=== PATIENT | male | born 1945 | race Caucasian/White ===

== ENCOUNTER → 2018-05-21 | Outpatient (CLI) | payer OTHER ==
[~2018-05-21] MED LIST: IOHEXOL 350 MG/ML 100ML INFUS..BTL IV ONE
== END | disposition home or self-care (01) ==
LOC: OIH 08:52
PROVIDERS: ATTEND Internal Medicine
DX: N28.89 Other specified disorders of kidney and ureter (principal); N28.1 Cyst of kidney, acquired
CPT/HCPCS: 74170; Q9967

== ENCOUNTER → 2024-05-08 | Outpatient (CLI) | payer OTHER ==
[2024-05-08 16:29] LABS: INR 1.91 (0.85-1.15); PROTHROMBIN TIME 20.1 SEC (9.6-11.6)
[2024-05-08 16:31] LABS: PARTIAL THROMBOPLASTIN TIME 34.5 SEC (26.3-35.5)
== END | disposition home or self-care (01) ==
LOC: LAB 11:19
PROVIDERS: ATTEND Student in an Organized Health Care Education/Training Program
DX: I48.91 Unspecified atrial fibrillation (principal)
CPT/HCPCS: 36415; 85610; 85730

== ENCOUNTER → 2025-04-23 | Outpatient (CLI) | payer OTHER ==
--- NOTE | 2025-04-23 13:38 | HMCIMG ---
EXAM: CT Abdomen without Intravenous Contrast CLINICAL HISTORY: Unspecified jaundice, Secondary and unspecified malignant neoplasm TECHNIQUE: Axial computed tomography images of the abdomen without intravenous contrast. Dose reduction technique was used including one or more of the following: automated exposure control, adjustment of mA and kV according to patient size, and/or iterative reconstruction. CONTRAST: Without COMPARISON: None provided. FINDINGS: LUNG BASES: Few bilateral lower lobar pulmonary nodules; the largest is seen on the left side measuring about 2.6 x 1.6 mm. Mild left pleural effusion is noted. Minimal right pleural pneumonic reaction is noted. LIVER: Unremarkable. No focal lesions. GALLBLADDER AND BILE DUCTS: Moderate intrahepatic biliary ductal dilatation is seen with dilatation of the common bile duct. PANCREAS: A pancreatic head mass is seen enlarging the entire head of the pancreas with surrounding enlarged lymph nodes suspicious for metastatic disease. Recommend CT abdomen with IV contrast and US and MRI as clinically indicated. SPLEEN: Unremarkable. ADRENAL GLANDS: Unremarkable. KIDNEYS AND URETERS: The right kidney is not visualized with multiple surgical clips seen at its anatomical site. Two tiny radiodense left renal gravels are seen at the middle and lower calyces ,measuring less than 2 mm. A left mid-polar simple cortical renal cyst is seen measuring about 2.3 mm ([email or web address]). Per consensus, no follow-up is needed for simple Bosniak type 1 and 2 renal cysts, unless the patient has a malignancy history or risk factors. No hydronephrosis. STOMACH AND BOWEL: No obstruction. No wall thickening. No CT evidence of colitis or acute diverticulitis. PERITONEUM: New scattered peritoneal and retroperitoneal soft tissue nodules are seen.The largest is seen related to the anatomical site of the right kidney measuring about 2.2 x 1.8 mm No free fluid. No free air. LYMPH NODES: Few small left paraaortic and left common iliac lymph nodes are seen. The largest is seen at the left common iliac, measuring about 9 mm. VASCULATURE: Scattered calcified aortic atheromatous plaques are noted. No aortic aneurysm. ABDOMINAL WALL AND SOFT TISSUES: A subcutaneous soft tissue nodule is seen at the left lateral abdominal wall, measuring about 12 x 10 mm. A small fat-containing umbilical hernia is noted. BONES: Diffuse decreased bone density. 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 Relatively decreased height of the L1 vertebral body. No acute osseous abnormality. HEART: Mild cardiomegaly is noted. IMPRESSION: 1. A pancreatic head mass is seen enlarging the entire head of the pancreas with surrounding enlarged lymph nodes suspicious for metastatic disease. Recommend CT abdomen with IV contrast and US and MRI as clinically indicated. scattered peritoneal and retro-peritoneal soft tissue nodules are seen ,largest seen related to the anatomical site of the right kidney, which could represent peritoneal and retro peritoneal deposits. These findings are concerning for metastatic disease. 2. Few bilateral lower lobar pulmonary nodules; the largest on the left side measures 2.6 x 1.6 mm.These findings are concerning for metastatic disease. 3. Subcutaneous soft tissue nodule at the left lateral abdominal wall, measuring about 12 x 10 mm. 4. Few small left paraaortic and left common iliac lymph nodes; the largest at the left common iliac measures about 9 mm. 5. Moderate thoracolumbar spondylodegenerative changes with marginal osteophytes and degenerative vacuum phenomenon at L5-S1 intervertebral discs. Relatively decreased height of the L1 vertebral body. 6. Overall picture suggestive of metastatic pulmonary nodules with peritoneal and retro-peritoneal deposits ,for correlation with previous studies. Consider CT PET if clinically indicated. /[place]
== END | disposition home or self-care (01) ==
LOC: RAH 11:11
PROVIDERS: ATTEND Internal Medicine
DX: C78.6 Secondary malignant neoplasm of retroperitoneum and peritoneum (principal); C77.1 Secondary and unspecified malignant neoplasm of intrathoracic lymph nodes; R91.8 Other nonspecific abnormal finding of lung field; M47.815 Spondylosis without myelopathy or radiculopathy, thoracolumbar region; M25.78 Osteophyte, vertebrae; M51.35 Other intervertebral disc degeneration, thoracolumbar region; M51.379 Other intervertebral disc degeneration, lumbosacral region without mention of lumbar back pain or lower extremity pain; K86.9 Disease of pancreas, unspecified; I51.7 Cardiomegaly; N28.1 Cyst of kidney, acquired; J90 Pleural effusion, not elsewhere classified; R17 Unspecified jaundice
CPT/HCPCS: 74150